=== PATIENT | male | born 1945 | race Caucasian/White ===

== ENCOUNTER 2019-11-19 01:37 | Inpatient (IN) | payer MEDICARE, SELFPAY ==
[~2019-11-19] VITALS: Ht 182.9 cm; Wt 77.3 kg
[2019-11-19] VITALS (17 sets, daily range): BP systolic 134–175; BP diastolic 64–84
[~2019-11-19 01:37] MED LIST: ASPI81TA52 PO; ATENOLOL PO; LISI-642 PO; OMEG1CAP2 PEG; SIMV-42 PO
[2019-11-19] MEDS ORDERED: ondansetron/PF 4mg/2ml inj IV ONE (01:50)
[2019-11-19] MEDS ORDERED: fentaNYL/PF 50MCG/1 ML 2ML syringe IV ONE (01:50)
[2019-11-19] MEDS ORDERED: ketorolac tromethamine 15mg/ml inj. IM ONE (01:55)
[2019-11-19] MEDS ORDERED: ketorolac tromethamine 15mg/ml inj. IV ONE (02:10)
[2019-11-19 02:23] LABS: BASOPHILS % (AUTO) 0.1 % (0-1); EOSINOPHILS # (AUTO) 0.1 X10'3 (0-0.9); EOSINOPHILS % (AUTO) 0.8 % (0-6); HEMATOCRIT 44.1 % (42.0-52.0); HEMOGLOBIN 15.1 g/dl (14.0-17.9); LYMPHOCYTES # (AUTO) 1.8 X10'3 (1.1-4.8); LYMPHOCYTES % (AUTO) 25.9 % (21-51); MEAN CORPUSCULAR HEMOGLOBIN 29.2 PG (27.0-31.0); MEAN CORPUSCULAR HGB CONC 34.1 g/dL (33.0-36.5); MEAN CORPUSCULAR VOLUME 85.6 FL (78-98); MEAN PLATELET VOLUME 7.3 FL (7.4-10.4); MONOCYTES # (AUTO) 1.9 X10'3 (0-0.9); MONOCYTES % (AUTO) 28.1 % (2-12); NEUTROPHILS # (AUTO) 3.1 X10'3 (1.8-7.7); NEUTROPHILS % (AUTO) 45.1 % (42-75); PLATELET COUNT 166 X10'3 (140-440); RED BLOOD COUNT 5.15 X10'6 (4.70-6.10); RED CELL DISTRIBUTION WIDTH 13.7 % (11.5-14.5); WHITE BLOOD COUNT 6.9 X10'3 (4.5-11.0)
[2019-11-19 02:35] LABS: ALANINE AMINOTRANSFERASE 39 U/L (12-78); ALBUMIN 4.1 G/DL (3.4-5.0); ALBUMIN/GLOBULIN RATIO 1.2 (1.1-1.5); ALKALINE PHOSPHATASE 70 IU/L (46-116); ANION GAP 8 (8-16); ASPARTATE AMINO TRANSFERASE 21 U/L (10-37); BILIRUBIN,TOTAL 0.3 MG/DL (0.1-1.0); BLOOD UREA NITROGEN 24 MG/DL (7-18); BUN/CREATININE RATIO 15.1 (5.4-32.0); CALCIUM 9.4 MG/DL (8.5-10.1); CHLORIDE 106 MMOL/L (99-107); CREATININE 1.59 MG/DL (0.60-1.10); GLUCOSE 188 MG/DL (70-104); LIPASE 224 U/L (73-393); MAGNESIUM 1.9 MG/DL (1.5-2.4); POTASSIUM 4.1 MMOL/L (3.5-5.1); SODIUM 142 MMOL/L (135-145); TOTAL CARBON DIOXIDE 27.8 MMOL/L (24-32); TOTAL PROTEIN 7.6 G/DL (6.4-8.2); eGFR 43 ML/MIN
--- NOTE | 2019-11-19 02:51 | NUR ---
Patient states complete relief after Toradol shot. He says his pain level is now a 1 versus the 10 when he came in.
[2019-11-19] MEDS ORDERED: normal saline 1000ml 1,000 ML IV ONE (03:00)
[2019-11-19 04:18] LABS: CLARITY,URINE SLIGHTLY CLOUDY (Clear); COLOR,URINE YELLOW (Yellow); GLUCOSE, URINE NEGATIVE (Neg); KETONES,URINE NEGATIVE (Neg); LEUKOCYTE ESTERASE ,URINE TRACE (Neg); NITRITES, URINE NEGATIVE (Neg); OCCULT BLOOD,URINE LARGE (Neg); PH,URINE 6.5 (4.8-8.0); PROTEIN,URINE TRACE mg/dl (Neg); UA COLLECTION TYPE CLN CATCH MIDSTREAM; UROBILINOGEN,URINE 0.2 E.U/dL (0.2-1.0)
[2019-11-19 04:27] LABS: COARSE GRANULAR CAST 0-3 /LPF (NEGATIVE); MUCUS STRANDS MODERATE /LPF (Neg); SQUAMOUS EPITHELIAL CELL,UR FEW /LPF (FEW)
[2019-11-19 04:28] LABS: AMORPHOUS URATES 2+
[2019-11-19 04:30] LABS: RBC,URINE 20-50 /HPF (0-2)
[2019-11-19 04:31] LABS: BACTERIA,URINE 2+ /HPF (Neg)
[2019-11-19] MEDS ORDERED: CefTRIAXone/D5W-Rocephin 1gm 50 ML IV ONE (04:35)
[2019-11-19 04:39] LABS: TOTAL CELLS COUNTED 100
[2019-11-19 04:40] LABS: PLATELET ESTIMATE NORMAL
[2019-11-19] MEDS ORDERED: CHOL200016 PO (06:48)
[2019-11-19] MEDS ORDERED: MULT-933 PO (06:48)
[2019-11-19] MEDS ORDERED: normal saline 1000ml 1,000 ML IV SCH (07:42)
[2019-11-19] MEDS ORDERED: acetaminophen 325mg tablet PO PRN ×4 (07:45→16:15)
[2019-11-19] MEDS ORDERED: magnesium hydroxide 30ml (MOM) UD suspension PO PRN ×2 (07:45→16:15)
[2019-11-19] MEDS ORDERED: HYDROcodone/acetaminophen 5mg/325mg tablet PO PRN ×2 (07:45→16:15)
[2019-11-19] MEDS ORDERED: mag hydrox/Alum hydrox/simeth 30ml oral suspension PO PRN ×2 (07:45→16:15)
[2019-11-19] MEDS ORDERED: HYDROcodone/acetaminophen 10/325mg tab PO PRN (07:45)
[2019-11-19] MEDS ORDERED: ondansetron/PF 4mg/2ml inj IV PRN ×3 (07:45→16:15)
[2019-11-19] MEDS: tamsulosin 0.4mg capsule PO SCH ×3 (07:45→20:02)
[2019-11-19] MEDS ORDERED: morphine 2 MG/ML inj. syringe IV PRN ×4 (07:45→16:15)
--- NOTE | 2019-11-19 09:40 | NUR ---
Patient in room ORTHO 4013. I have received report from JUDY RAMIREZ and had the opportunity to ask questions and assume patient care.
--- NOTE | 2019-11-19 13:30 | NUR ---
PATIENT DOWN TO OR. Addendum: 11/19/19 at 1514 by Margot Sargent RN REPORT GIVEN TO
[2019-11-19] MEDS ORDERED: fentaNYL/PF 50MCG/1 ML 2ML syringe ONE (13:45)
[2019-11-19] MEDS ORDERED: propofol inj 20 ML IV ONE (13:47)
[2019-11-19] MEDS ORDERED: LIDOcaine 2% (20mg/ml) 5ml vial ONE (13:47)
[2019-11-19] MEDS ORDERED: succinylcholine 20mg/ml inj IV ONE (13:47)
[2019-11-19] MEDS ORDERED: sevoflurane 250ml liquid IH ONE (14:01)
[2019-11-19] MEDS ORDERED: ringers solution, lacted 1,000 ML IV SCH (14:33)
[2019-11-19] MEDS ORDERED: morphine 4 MG/ML inj SYRINge IV PRN (14:35)
[2019-11-19] MEDS ORDERED: ondansetron/PF 4mg/2ml inj ONE (14:45)
[2019-11-19] MEDS ORDERED: dexamethasone sod phosphate 4mg/ml inj. ONE (14:45)
--- NOTE | 2019-11-19 14:49 | NUR ---
Received from OR via , accompanied by Anesthesiologist DR NAVARRO and report given by Anesthesiolgist. AWAKENS TO VOICE. VITALS STABLE. ALCON PAIN.
--- NOTE | 2019-11-19 15:39 | NUR ---
Report called to receiving nurse. Transferred via BED Belongings . Special Issues communicated to receiving nurse.AWAKE AND ORIENTED. VITALS STABLE. ALCON PAIN. TO ORTHO RM 4013A AT THIS TIME.
--- NOTE | 2019-11-19 15:39 | NUR ---
PAGER ID: [phone] MESSAGE: CARLITOS [phone] RE: KEITH [id number] PT COMING BACK FROM THE OR, NO ORDERS FOR PAIN MEDS, AND ALL MEDS ARE HELD.
--- NOTE | 2019-11-19 15:40 | NUR ---
ASSUMED CARE, RECEIVED REPORT FROM KWAME RAMIREZ, PT A&O X4, FAMILY AT BEDSIDE. POST OP VS STARTED.PATIENT REPORTS MILD DISCOMFORT AND BURNING AT THIS TIME. WILL CONTINUE TO MONITOR.
[2019-11-19] MEDS: normal saline 1000ml 1,000 ML IV SCH ×2 (16:15→20:05)
[2019-11-19] MEDS: HYDROcodone/acetaminophen 10/325mg tab PO PRN ×2 (16:44→21:12)
--- NOTE | 2019-11-19 18:10 | NUR ---
Problems reprioritized. Patient report given, questions answered & plan of care reviewed with PRINCE RAMIREZ.
--- NOTE | 2019-11-19 18:15 | NUR ---
Patient in room ORTHO 4013. I have received report from JAMES Frost and had the opportunity to ask questions and assume patient care.
[2019-11-20 02:00] VITALS: BP 137/62
[2019-11-20] MEDS: HYDROcodone/acetaminophen 10/325mg tab PO PRN ×4 (02:59→14:44)
[2019-11-20 03:25] VITALS: BP 135/65
[2019-11-20] MEDS: normal saline 1000ml 1,000 ML IV SCH (05:27)
[2019-11-20 06:09] LABS: ALBUMIN 3.7 G/DL (3.4-5.0); ANION GAP 9 (8-16); BLOOD UREA NITROGEN 15 MG/DL (7-18); BUN/CREATININE RATIO 11.7 (5.4-32.0); CALCIUM 8.5 MG/DL (8.5-10.1); CHLORIDE 108 MMOL/L (99-107); CREATININE 1.28 MG/DL (0.60-1.10); GLUCOSE 129 MG/DL (70-104); POTASSIUM 3.8 MMOL/L (3.5-5.1); SODIUM 143 MMOL/L (135-145); TOTAL CARBON DIOXIDE 26.1 MMOL/L (24-32); eGFR 55 ML/MIN
[2019-11-20 06:15] LABS: BASOPHILS % (AUTO) 0.2 % (0-1); EOSINOPHILS % (AUTO) 0 % (0-6); HEMATOCRIT 44.1 % (42.0-52.0); HEMOGLOBIN 15.3 g/dl (14.0-17.9); LYMPHOCYTES # (AUTO) 0.9 X10'3 (1.1-4.8); LYMPHOCYTES % (AUTO) 11.3 % (21-51); MEAN CORPUSCULAR HEMOGLOBIN 30.1 PG (27.0-31.0); MEAN CORPUSCULAR HGB CONC 34.7 g/dL (33.0-36.5); MEAN CORPUSCULAR VOLUME 86.9 FL (78-98); MEAN PLATELET VOLUME 7.5 FL (7.4-10.4); MONOCYTES # (AUTO) 1.4 X10'3 (0-0.9); MONOCYTES % (AUTO) 16.9 % (2-12); NEUTROPHILS # (AUTO) 5.8 X10'3 (1.8-7.7); NEUTROPHILS % (AUTO) 71.6 % (42-75); PLATELET COUNT 150 X10'3 (140-440); RED BLOOD COUNT 5.07 X10'6 (4.70-6.10); RED CELL DISTRIBUTION WIDTH 13.3 % (11.5-14.5); WHITE BLOOD COUNT 8.1 X10'3 (4.5-11.0)
--- NOTE | 2019-11-20 06:32 | NUR ---
Problems reprioritized. Patient report given, questions answered & plan of care reviewed with JAMES Martinez.
[2019-11-20 06:50] VITALS: BP 125/62
[2019-11-20] MEDS ORDERED: CefTRIAXone/D5W-Rocephin 1gm 50 ML IV SCH (08:00)
[2019-11-20 08:06] LABS: PLATELET ESTIMATE NORMAL; TOTAL CELLS COUNTED 100
[2019-11-20 11:49] VITALS: BP 147/55
[2019-11-20] MEDS ORDERED: tamsulosin capsule PO (12:46)
[2019-11-20] MEDS ORDERED: HYDR-4353 PO (12:46)
[2019-11-20] MEDS ORDERED: LEVO500T2 PO (15:06)
--- NOTE | 2019-11-21 14:11 | NUR ---
Case management DC follow-up: Spoke to pt on the phone: Pt declared the [facility] staff, "amazing" and he had no questions at this time. pt verbalized understanding of medications and why he was prescribed them and had no questions at this time. pt verbalized understanding that a follow up appt within the next 2 weeks w/[facility]. Pt denies pain, SOB, resp distress, N/V, dizziness at time of telephone conversation.
== END 2019-11-20 16:30 | disposition home or self-care (01) | DRG 660 ==
LOC: ER 01:38 → ED HOLD 07:51 → ORTHO 4S 09:53
PROVIDERS: ADMIT Internal Medicine; ATTEND Internal Medicine
PROC: 0T778DZ Dilation of Left Ureter with Intraluminal Device, Via Natural or Artificial Opening Endoscopic (ICD-10-PCS; principal; 2019-11-19 14:01)
DX: N13.6 Pyonephrosis (principal); N20.2 Calculus of kidney with calculus of ureter; E78.00 Pure hypercholesterolemia, unspecified; N17.9 Acute kidney failure, unspecified; E78.5 Hyperlipidemia, unspecified; I10 Essential (primary) hypertension; Z79.82 Long term (current) use of aspirin; Z79.899 Other long term (current) drug therapy; Z82.41 Family history of sudden cardiac death; Z87.891 Personal history of nicotine dependence; Z88.2 Allergy status to sulfonamides; Z90.49 Acquired absence of other specified parts of digestive tract; Z82.49 Family history of ischemic heart disease and other diseases of the circulatory system
CPT/HCPCS: 36415; 71045; 74176; 76000; 80048; 80053; 81001; 82948; 83690; 83735; 84484; 85025; 87077; 87081; 87088; 87186; 93005; 96365; 96375; 99285; A4618; C1758; C1769; C2617; G0378; J0330; J0696; J1100; J1885; J2001; J2270; J2405; J2704; J3010; J7030; J7120